=== PATIENT | female | born 1935 | race Caucasian/White ===

== ENCOUNTER 2016-07-07 20:36 | Observation (INO) | payer MEDICARE, BC, OTHER ==
[~2016-07-07] VITALS: Ht 170.2 cm; Wt 82.3 kg
--- NOTE | ~2016-07-07 | ECH ---
Transthoracic Echocardiography Report (TTE) Demographics Patient Name ARIADNE HERNANDEZ Date of Study 07/08/2016 Patient Number [id number] Visit Number [id number] Date of 1935 Room Number 426 Accession Number [id number] Gender Female Age 81 year(s) Referring Bernard Orlando Client Evaluator Melody Negrete Physician Sheldon CUELLAR [facility] [place]ailash Physician Interpreting Sheldon CUELLAR [employer] Apprentice Physician Kailash Supervising Ordering Physician Bernard Orlando MD/P Nurse Stress Knife Setter Grinder Machine Conclusions Contractility Score Summary At rest the following contractility abnormalities were noted: Hypokinesis of the Mid infero-septal, the Apical septal and the Basal infero-septal segments. Contractility of all other segments appeared normal. Summary Technically adequate exam. The estimated left ventricular ejection fraction is 60%. Diastolic assessment reveals Grade I diastolic dysfunction. The right atrium is mildly dilated. Mild tricuspid regurgitation by color Doppler. There is mild pulmonary hypertension. The pulmonary pressure (RVSP) is 35 mmHg. Recommendation The patient will be given the results of this study by the physician who ordered the exam. Procedure Type of Study TTE procedure:Echo Complete SF. Procedure Date Date: 07/08/2016 Start: 02:29 PM Technical Quality: Adequate visualization Indications:Atypical Chest Pain, Hypertension, Coronary artery disease and Left Bundle Branch Block (LBBB). Appropriate Use Criteria: 9 Height: 67 inches Weight: 185 pounds BSA: 1.96 m Rhythm: NSR HR: 84 bpm BP: 163/78 mmHg M-Mode/2D Measurements LV Diastolic Dimension: 4.01 cm LV Systolic Dimension: 3.36 cm LV Septum Diastolic: 0.91 cm LV PW Diastolic: 0.9 cm AO Root Dimension: 3.19 cm Cardiac Output: 4.64 l/min LA Dimension: 3.95 cm Cardiac Index: 2.37 l/min*m RV Diastolic Dimension: 3.53 cm LA volume index: 34 ml/m LVOT: 2.02 cm LVOT VTI: 17.23 cm RV Base: 3.6 cm LV Stroke volume: 55.19 ml RV Mid: 13 cm LV Stroke volume index: 28.16 ml/m TAPSE: 2 cm TDI-S': 14 cm/s Doppler Measurements AV Peak Velocity: 1.3 m/s MV Peak E-Wave: 0.63 m/s AV Peak Gradient: 6.76 mmHg MV Peak A-Wave: 1.14 m/s AV Mean Gradient: 3.88 mmHg MV E/A Ratio: 0.55 LVOT Peak Velocity: 0.97 m/s MV P1/2t: 52.9 msec AV Area (Continuity):2.27 cm MV Deceleration Time: 227.9 msec TR Velocity:2.85 m/s MV Area (PHT): 4.16 cm TR Gradient:32.49 mmHg PV Peak Velocity: 1.14 m/s Estimated RAP:3 mmHg PV Peak Gradient: 5.22 mmHg Estimated RVSP: 35 mmHg Estimated PASP: 35.49 mmHg E' Septal Velocity: 0.07 m/s A' Septal Velocity: 0.1 m/s E' Lateral Velocity: 0.05 m/s A' Lateral Velocity: 0.1 m/s RA Area: 22.14 cm Findings Left Ventricle Normal left ventricle size and function. Diastolic assessment reveals Grade I diastolic dysfunction. Right Ventricle Normal right ventricle structure and function. Left Atrium Normal left atrial size. Right Atrium The right atrium is mildly dilated. Mitral Valve Mild mitral annular calcification. Mild mitral regurgitation by color Doppler. Aortic Valve The aortic valve is mildly sclerotic. Tricuspid Valve Normal tricuspid valve structure and function. Mild tricuspid regurgitation by color Doppler. There is mild pulmonary hypertension. The pulmonary pressure (RVSP) is 35 mmHg. Pulmonic Valve Normal pulmonic valve structure and function. Pericardial Effusion No evidence of pericardial effusion. Miscellaneous Visualized portions of the aortic root and ascending aorta appear normal in size. Pleural Effusion No evidence of pleural effusion. Contractility Score LV regional wall motion:(0-Non visualized 1-Normal 2-Hypokinesis 3-Akinesis 4-Dyskinesis 5-Aneurysm) Signature
--- NOTE | ~2016-07-07 | CST ---
Cardiac Perfusion Imaging Demographics Patient Name MARY Maher Gender Female Patient Number [id number] Race Visit Number [id number] Ethnicity [employer] ID Room Number 426 Accession Number [id number] Height 67 inches Date of 1935 Weight 185 pounds Age 81 year(s) BSA 1.96 m Referring Physician Alex Cherry MD BMI 28.97 kg/m Interpreting Physician Alex Cherry MD Date of study 07/09/2016 [facility] Supervising MD/NICK VIVEROS Technologist Michelle Linder Ordering Physician Alex Cherry MD Stress Misty Moran hematology technician Stress ECG Reading Alex Cherry MD Nurse Ford Physician [facility] Henny Shields The procedure was explained in detail to the patient. Risks, complications and alternative treatments were reviewed. Written consent was obtained. Medications Reviewed with Patient prior to Procedure. Procedure Procedure Type: Nuclear Stress Test:Pharmacological, Lexiscan Procedure Start time: 07/09/2016 08:00 Indications: Chest pain, Hyperlipidemia, Hypertension, Family history of coronary artery disease, COPD and Left Bundle Branch Block (LBBB). Risk Factors The patient risk factors include:treated hypercholesterolemia, treated hypertension, chronic lung disease and dyslipidemia. Conclusions Summary Perfusion Images: The overall quality of the study is good. Left ventricular cavity is noted to be normal on the stress and rest studies. There is no evidence of abnormal lung activity. The right ventricle is not visualized and cannot be assessed. Stress SPECT images demonstrate homogenous tracer distribution throughout the myocardium. Rest SPECT images demonstrate homogenous tracer distribution throughout the myocardium. Gated SPECT imaging reveals normal myocardial thickening and wall motion. The left ventricular ejection fraction was calculated to be 65%. Impression ECG portion of stress test is clinically negative for ischemia by diagnostic criteria. Myocardial perfusion imaging is normal. Overall left ventricular systolic function was normal without regional wall motion abnormalities. There are no previous studies for comparison. Stress Protocols Resting ECG Normal sinus rhythm. LBBB. Resting HR:81 bpm Resting BP:152/72 mmHg Stress Protocol:Pharmacologic Predicted HR: 139 bpm Test duration: 06:00 min Reason for termination:Infusion complete Symptoms Shortness of breath. Symptoms resolved by end of test. Complications Procedure complication: None. Imaging Results Summed scores - Summed stress score: 7 - Summed rest score: 3 - Summed difference score: 4 Stress ejection Ejection fraction:66 % EDV :87 ml ESV :30 ml Stroke volume :57 ml LV mass :114 gr Imaging Protocols Rest Stress Isotope:Tc99m Myoview IV Isotope: Tc99m Myoview IV Isotope dose:10.5 mCi Isotope dose:31.9 mCi Date:07/09/2016 06:30 Date:07/09/2016 08:00 Technique: SPECT Technique: Gated Supine SPECT Supine IV remains in place after procedure. Scan Time:45-60 minutes post Scan Time:45-60 minutes post injection injection Procedure Medications - Regadenoson (Lexiscan) 0.4 mg IV over 10-15 sec. I.V. 0.4 mg. Medications administered per verbal order and read back to physician prior to administration. Medical History Admission Data Admission date: 07/07/2016 Admission Time: 22:25 Hospital Status: Inpatient. Signatures
--- NOTE | 2016-07-08 05:54 | ER ---
ADMIT: 07/07/2016 RM/LOC: ER [facility] MR#: [id number] 2620 [facility] [address] [place] [id number] ARIADNE HERNANDEZ [address] [place] [address] Emergency Room Report SEX: F AGE: 81 : 1935 DATE: 07/07/2016 CHIEF COMPLAINT: Chest pressure. 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 States for the past 12 to 24 hours she has had upper left chest pressure radiating to her neck associated with nausea, shortness of breath, diaphoresis, made worse with activity and improved with rest. The patient had recent epidural steroid injection to cervical spine on June 25, saw Dr. Ryan Alberto last week for chest cold. PAST MEDICAL HISTORY: ILLNESSES: Mitral regurgitation, nonobstructive coronary artery disease with vasospasm, right coronary artery, confirmed heart cath in 2007, hyperlipidemia, hypertension, GERD, COPD, DJD, degenerative disk disease, anemia, UTI, and previous salmonella enterocolitis. OPERATIONS: Coronary catheterization in 2007, epidural steroid injection on June 2016, cholecystectomy, hysterectomy, bilateral rotator cuff repair, and right total hip arthroplasty. ALLERGIES: T3. MEDICATIONS: Please see nurse's MAR. SOCIAL HISTORY: . Nonsmoker. Nondrinker. No illicit drugs. FAMILY HISTORY: Negative per chart review. REVIEW OF SYSTEMS: A 12-point review of systems negative for all other systems, illnesses, or operations except as outlined above. PHYSICAL EXAMINATION: VITAL SIGNS: Temp 98, pulse 95, respirations 18, BP 189/77, and SaO2 of 96% on room air. GENERAL: Mild distress, nontoxic, non-diaphoretic without jaundice or icterus. HEENT: Normocephalic. No evidence of epistaxis, rhinorrhea, or otorrhea. NECK: Supple without lymphadenopathy or thyromegaly. CHEST: Clear. Breath sounds equal and nontender to palpation. HEART: Regular rate and rhythm without murmur, gallop, or edema. ABDOMEN: Soft, nontender, and nondistended without mass or megaly. Bowel sounds hypoactive. EXTREMITIES: No evidence of Homans sign, synovitis, or dermatitis. NEUROLOGIC: EOMI. PERRLA. No evidence of drift, dysarthria, or ataxia. Gait not established. MEDICAL DECISION MAKING: EKG shows sinus tachycardia with left bundle-branch block, unchanged from August 22, 2012. Chest x-ray shows cardiomegaly without ADMIT: 07/07/2016 RM/LOC: [facility] MR#: [id number] [address] [id number] ARIADNE HERNANDEZ [address] [place] [address] Emergency Room Report SEX: F AGE: 81 : 1935 CHF. WBC is 10.5, lactic 2.0, lipase 223, CRP 0.31, sodium 130, glucose 118. Initial CK, MB, and troponin all within normal limits. D-dimer 0.37. BNP 70. The patient was given aspirin, nitroglycerin with near complete relief of pain then placed on IV nitroglycerin with lowering of blood pressure to the one teens and no further pain. Discussed findings with Dr. Jefe Lopez and Dr. So, both agree. Dr. Lopez gave orders to nursing staff. Due to the patient's presentation, findings, and intervention, 60 minutes of critical care is warranted. DIAGNOSES: 1. Unstable angina associated with known right coronary artery spasm. 2. Hypertension. 3. Hyperlipidemia. 4. Degenerative joint disease. RECOMMENDATION: Admit to inpatient PCU for Dr. Wagner. Chris Read MD/ sam JOB #: [id number] CC: Chris Read MD, Attending Physician Everardo Wagner MD, Family Physician Everardo Wagner MD
[2016-07-10] MEDS ORDERED: PROTONIX40 MG PO (14:06)
[2016-07-10] MEDS ORDERED: NASACORT16.9 ML NS (14:06)
[2016-07-10] MEDS ORDERED: ZESTORETIC 20/11 TAB PO (14:06)
[2016-07-10] MEDS ORDERED: MOBIC DPS7.5 MG PO (14:06)
[2016-07-10] MEDS ORDERED: LIPITOR DPS20 MG PO (14:06)
[2016-07-10] MEDS ORDERED: ESTROGEN PATCH TP (14:07)
[2016-07-10] MEDS ORDERED: CALTRATE-600 D600 MG PO (14:07)
[2016-07-10] MEDS ORDERED: ASPIR-LOW81 MG PO (14:07)
[2016-07-10] MEDS ORDERED: KLOR-CON M2020 ME1 PO (14:07)
[2016-07-10] MEDS ORDERED: ZEBETA5 MG PO (14:07)
[2016-07-10] MEDS ORDERED: ADVAIR DIS1 PUFF/DO1 IH (14:08)
[2016-07-10] MEDS ORDERED: ZANTAC DPS150 MG PO (14:08)
[2016-07-10] MEDS ORDERED: PROVENTIL2.5 MG/3 M IH (14:08)
[2016-07-10] MEDS ORDERED: FLEXERIL-DPS10 MG PO (14:08)
[2016-07-10] MEDS ORDERED: ANTIVERT-DPS25 MG PO (14:08)
[2016-07-10] MEDS ORDERED: DUONEB DPS3 ML UG (14:09)
[2016-07-10] MEDS ORDERED: MONTELUKAST SOD10 MG PO (14:09)
[2016-07-10] MEDS ORDERED: ALLEGRA DPS180 MG PO (14:09)
[2016-07-10] MEDS ORDERED: MAALOX DPS30 ML PO (14:09)
[2016-07-10] MEDS ORDERED: CELEXA DPS20 MG PO (14:09)
[2016-07-10] MEDS ORDERED: TYLENOL DPS325 MG PO (14:10)
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
--- NOTE | 2016-07-12 11:56 | CO ---
ADMIT: 07/07/2016 RM/LOC: 426 [facility] MR#: [id number] [address] [address] CELSA HERNANDEZ [address] [place] [address] Consultation SEX: F AGE: 81 : 1935 DATE OF CONSULTATION: 07/08/2016 ATTENDING PHYSICIAN: Everardo Wagner CONSULTING PHYSICIAN: Cecile Johnson MD REASON FOR CONSULT: Chest pain. Radha Bahena RN, scribing for Dr. Dilip Johnson. HISTORY OF PRESENT ILLNESS: Celsa is a pleasant 81-year-old female, I have been asked to see in Cardiology consultation by Dr. Wagner for chest discomfort. She has history of normal cardiac catheterization in 2007, questionable right coronary artery vasospasm at that time. Last echocardiogram was in 2014 showing EF of 60% to 65% with mild mitral regurgitation. She has history of left bundle branch block dating back to 2012. She also has history of hypertension and hyperlipidemia. Celsa presented to [facility] with complaints of chest heaviness. She states that her symptoms began yesterday afternoon in her left chest, did not radiate anywhere and waxed and waned during the day. She states that with rest and with exertion, she was having discomfort but did feel weaker with her regular activities. Since admission, she does state she still had chest pressure off and on, but not as intense. She had some nausea significant yesterday as well. Cardiac enzymes have been negative x3. Vital signs have been stable. EKG does not show any significant ST-T changes. PAST MEDICAL HISTORY: Left bundle branch block, hypertension, hyperlipidemia, COPD, gastroesophageal reflux disease, gallbladder disease, urinary tract infections, degenerative joint disease, degenerative disk disease with osteoarthritis and anemia. PAST SURGICAL HISTORY: Includes epidural injection on June 25 of this year, cholecystectomy, hysterectomy, bilateral rotator cuff repair, and right total hip arthroplasty. ALLERGIES: TYLENOL NO. 3. MEDICATIONS: Current medications include: 1. Aspirin 81 daily. 2. Caltrate 600 b.i.d. 3. Celexa 20 daily. 4. Flexeril 10 at bedtime. 5. Potassium chloride 20 mEq b.i.d. 6. Lipitor 20 at bedtime. 7. Mobic 7.5 daily. 8. Protonix 40 daily. 9. Singulair 10 at bedtime. 10.Zebeta 5 b.i.d. ADMIT: 07/07/2016 RM/LOC: 426 [facility] MR#: [id number] [address] [address] MARYCELSA [address] [address] Consultation SEX: F AGE: 81 : 1935 11.Zestoretic 20/12.5 daily. 12.Dulera b.i.d. 13.Flonase 2 daily. 14.Lovenox 40 mg subcu daily. FAMILY HISTORY: Noncontributory. SOCIAL HISTORY: Celsa is . She lives at home with her . She is retired. She denies any special diet, significant caffeine, alcohol, or drug use. She denies any tobacco use. REVIEW OF SYSTEMS: GENERAL: Denies any increased fatigue, recent fever, chills, sweats, or weight changes. EYES: Denies double vision, blurred vision, cataracts, or glaucoma. THROAT, MOUTH AND EARS: Denies hearing loss or problems with nose, mouth or throat. RESPIRATORY: History of COPD. Denies any hemoptysis or sleep apnea. GASTROINTESTINAL: History of gastroesophageal reflux disease and gallbladder disease status post cholecystectomy. Denies any hiatal hernia, GI bleeding, or trouble swallowing. GENITOURINARY: History of urinary tract infections in the past, none currently. Denies any hematuria. MUSCULOSKELETAL: History of muscle and joint pain with degenerative disk disease, degenerative joint disease, particularly in her knees and also has history of right hip arthroplasty. She denies any gout. ENDOCRINE: Denies diabetes or thyroid disease. HEMATOLOGY: Chronic anemia. Denies cancer. NEUROLOGIC: Denies chronic headaches, dizziness, syncope, stroke, seizures or numbness or tingling. PSYCHIATRIC: Denies history of mental illness or feelings of depression. PHYSICAL EXAMINATION: VITAL SIGNS: Blood pressure 153/78, heart rate 95, respirations 20, temperature 98.5, and oxygenation 92%. SKIN: [place], warm and dry. EYES: Sclerae clear. No xanthelasmas. ENT: Oral mucosa is pink and moist. No jugular venous distention or carotid bruits. CHEST: Respirations are even and unlabored. Lungs are clear to auscultation. HEART: Regular rate and rhythm. Normal S1, S2. No murmurs, rubs or gallops. ABDOMEN: Soft and nontender. MUSCULOSKELETAL: Gait is normal. EXTREMITIES: Peripheral pulses palpable. No clubbing, cyanosis or edema. PSYCHIATRIC: Alert and oriented. Mood and affect are appropriate. DIAGNOSTIC DATA: Sodium 131, potassium 4.3, BUN 10, creatinine 0.8, glucose 116, and magnesium 1.8. ProBNP 70. CRP 0.31. D-dimer 0.37. INR 0.93. White blood cell count 9.8, hemoglobin 13.8, hematocrit 40.5, and platelets 275. CK 51, MB less than 0.5, and troponin less than 0.015 on third set. All 3 sets ADMIT: 07/07/2016 RM/LOC: 426 [facility] MR#: [id number] [address] [address] CELSA HERNANDEZ [address] [place] [address] Consultation SEX: F AGE: 81 : 1935 are negative. ASSESSMENT/PLAN: 1. Chest pain. 2. Mitral regurgitation. 3. Hypertension. 4. Left bundle branch block. Celsa's chest pain seems atypical. Her EKG and enzymes have been negative. I see no changes from prior EKG. I would like to check echocardiogram given her history of mitral regurgitation as well as current symptoms of chest discomfort to make sure there are no wall motion abnormalities, change in ejection fraction, or valvular abnormalities. If that is normal, we will proceed with stress test, Lexiscan tomorrow morning. She is unable to walk on the treadmill because of arthritis, also she has a left bundle branch block at baseline. Final recommendations will be pending testing results. Thank you for the consultation. "I have read and agree with the documentation that has been completed regarding this visit. By signing this record, I attest that the documentation was completed in my physical presence and is an accurate record of the encounter." Radha Bhaena RN / CPamela Johnson MD / sam JOB #: [id number] CC: Everardo Wagner, Attending Physician Everardo Wagner, Family Physician
--- NOTE | 2016-07-13 15:45 | HP ---
ADMIT: 07/07/2016 RM/LOC: [facility] MR#: [id number] [facility] [address] [place], [place] [id number] ARIADNE HERNANDEZ [address] [place] [address] History and Physical SEX: F AGE: 81 : 1935 DATE OF SERVICE: AGE: 81. CHIEF COMPLAINT: Chest pain. CLINICAL HISTORY: The patient is an 81-year-old, white female, admitted to [facility] on Friday evening, after presenting to the emergency room complaining of chest discomfort or pressure in her upper chest. Patient presented to the emergency room as noted, on the evening of 07/07/2016, complaining of chest discomfort. She had been having some chest pain off and on throughout the weekend in her left upper chest and at the base of her neck. She also was having some nausea and a feeling of shortness of breath with this discomfort. She had an episode that seemed a little more intense on the evening of 07/07/2016, and for that reason, she had her contact the ambulance and she was brought to the ER by the [facility]. Because of her chest discomfort, she is evaluated in the ER by Dr. Her where her cardiac enzymes were noted to be normal including a troponin 1 of less than 0.015. She also was noted to have an EKG that showed sinus tachycardia with left bundle branch block, unchanged from prior EKGs. She had a chest x-ray that showed cardiomegaly without CHF and no acute infiltrates. Her D-dimer was noted to be normal at 0.37, proBNP was 70. The patient was given baby aspirin as well as some sublingual nitroglycerin while in the emergency room. She was then placed on IV nitroglycerin which alleviated her chest pain. It was felt that there was a strong possibility that this could be cardiac in nature although notes the patient has been having ongoing neck pain and severe difficulty with her cervical spine due to her disk disease. She has been having neck pain and radicular right arm pain from her cervical disk disease. She notes that her neck pain has also been at times radiated down into her chest. She was unsure if this pain was all related to her neck or possibly cardiac in nature, which is why she presented to the ER. Following evaluation in the ER, it was felt best to admit to rule out possible cardiac etiology and proceed with further cardiac workup. PAST MEDICAL HISTORY: Recent hospitalizations: The patient was last hospitalized here at [facility] in July of 2012. At that time, she was 1 month post right total hip, but had developed nausea and vomiting and diarrhea and was found to have a salmonella gastroenteritis. She had been hospitalized on 07/27/2012, for right total hip. She has had no other recent hospitalizations. PREVIOUS SURGICAL PROCEDURES: Include a left total hip arthroplasty done in March of 2012. She has also had previous left rotator cuff repair and she has also had a right rotator cuff repair in October of 2010, right knee scope in July of 2011. She has had a previous hysterectomy and cholecystectomy. She has also had previous EGDs and colonoscopy. She has also had previous surgical repair of a fractured right patella. She has chronic arthritic pain in her right knee. Other surgeries include previous cataract surgery as well as breast biopsy for benign breast lesions. She has ADMIT: 07/07/2016 RM/LOC: [facility] MR#: [id number] [address] [id number] ARIADNE HERNANDEZ [address] [place] [address] History and Physical SEX: F AGE: 81 : 1935 had no other recent hospitalizations or surgical procedures. CURRENT MEDICATIONS: Include: 1. Nasacort AQ 2 sprays each nares daily. 2. Prinzide 20/12.5 one daily. 3. Protonix 40 mg daily. 4. Lipitor 20 mg daily. 5. Mobic 7.5 mg daily, which she has not been taking recently. 6. Zebeta 5 mg twice daily. 7. K-Dur 20 mEq b.i.d. 8. Calcium 600 mg twice daily. 9. Baby aspirin 81 mg daily. 10.Albuterol metered-dose inhaler p.r.n. shortness of breath. 11.Advair 250/50 one puff twice daily. 12.Flexeril 10 mg at bedtime for back pain. 13.Antivert 25 mg 1 every 6 hours p.r.n. dizziness. 14.Zantac 150 mg 1 at bedtime p.r.n. indigestion. 15.Jessy 180 mg 1 daily p.r.n. allergy congestion. 16.Singulair 10 mg at bedtime. 17.DuoNeb via twin jet nebulizer q.i.d. p.r.n. shortness of breath. 18.Celexa 20 mg daily. ALLERGIES: SHE IS ALLERGIC TO CODEINE AND ACETAMINOPHEN. SHE NOTES THAT TYLENOL NO. 3 CAUSED HER TO HAVE SEVERE CONSTIPATION AND URINARY RETENTION. SOCIAL HISTORY: The patient is . She is retired. She lives with her in their family home in [place], [place]. She is a lifelong nonsmoker. No history of alcohol use. No history of illicit drugs. FAMILY HISTORY: She notes her father had colon cancer. Grandmother also had colon cancer. She has a sister, who had a malignant brain tumor. Her mother of acute myocardial infarction as did one of her brothers. There is a family history of hypertension and hyperlipidemia. One of her sisters also had breast cancer and one of her daughters has also had breast cancer. Remainder of her family history is negative. REVIEW OF SYSTEMS: CONSTITUTIONAL: No fever, no chills. No recent change in weight. No night sweats. Appetite is normal. HEENT: Does have some chronic nasal and sinus congestion due to allergies, but no other new eye, ear, nose, or throat complaints. PULMONARY: The patient does have history of COPD. She did have recent upper respiratory infection with some increased chest congestion. She notes minimal sputum production at this time. No pleuritic chest pain. No hemoptysis. CARDIAC: The patient does have history of valvular heart disease, history of tricuspid regurgitation, and mild mitral regurgitation. No prior history of myocardial infarction or angina. No palpitations. No orthopnea. No PND. No syncope. GASTROINTESTINAL: History of chronic GERD. History of esophageal reflux, ADMIT: 07/07/2016 RM/LOC: [facility] MR#: [id number] [facility] [address] [place], [place] [id number] ARIADNE HERNANDEZ [address] [place] [id number] History and Physical SEX: F AGE: 81 : 1935 symptoms well controlled. Has had previous cholecystectomy. No recent blood in the stools. No change in bowel habitus. GENITOURINARY: No voiding symptoms at this time. No flank pain or dysuria. MUSCULOSKELETAL: Diffuse arthritic complaints. Significant arthritis in her knees. She has had bilateral hip surgery, bilateral total hip arthroplasty. She has had no recent falls or injuries. Does have chronic low back pain, history of lumbar spinal stenosis. Has had previous lumbar epidural steroid injections with good relief. Has chronic neck pain with recent marked worsening of her neck discomfort. NEUROLOGIC: No history of strokes, seizures, or TIAs. No focal symptoms. No lightheadedness, dizziness, or syncope. She has been having neck pain with radicular right arm pain. ENDOCRINE: No history of diabetes or thyroid issues. HEMATOLOGIC: No previous history of clotting disorder, blood clots, or significant history of anemia. PHYSICAL EXAMINATION: VITAL SIGNS: Temp is 97.3, pulse 78, respirations 12, blood pressure 120/51, O2 saturation is 93%, current weight is 185 pounds. GENERAL: The patient is an 81-year-old female, who appears her stated age. She is in no acute distress. She is oriented x3. HEENT: Reveals her ears to be clear. Nose and throat are noninflamed. Oropharynx normal. Pupils equal and reactive. Sclerae nonicteric. Conjunctivae noninflamed. NECK: Noted to have limited mobility due to her cervical muscle spasm. She has a lot of tightness in her paraspinous muscles. Tightness in her neck, shoulders, and upper back. No neck masses. No cervical adenopathy. Thyroid not enlarged. LUNGS: Today are noted to be clear. Little diminished in the bases. HEART: Has a regular rhythm. She has a grade 1/6 systolic murmur heard along the left sternal border. No evidence of failure. No arrhythmias noted. ABDOMEN: Soft, nontender. No masses. No organomegaly. No hernias. Bowel sounds are normoactive. BREASTS: Exam not performed at this time. PELVIC: Not performed at this time. EXTREMITIES: Have no peripheral edema. No clubbing or cyanosis. No calf tenderness. She has scars over both hips from previous total hip arthroplasty. She has no evidence of thrombophlebitis. Negative Homans' sign. She moves all extremities well. NEUROLOGICAL: I cannot appreciate any focal deficit. Her balance is fair, gait is steady. She has no focal deficits on neurologic exam. MENTAL STATUS EXAMINATION: She is oriented x3. Her affect is appropriate. No significant depressive symptoms. Cognitively well-preserved. LABORATORY DATA: Her pre-admission laboratory work; on CBC white count was 10,500, hemoglobin 13.3, hematocrit 39. Electrolytes were normal. Sodium 130, potassium 4.2, BUN was 13, creatinine was 0.9. CK-MB was less than 0.5, CPK was 33, troponin 1 was low at less than 0.015. Her chest x-ray was noted ADMIT: 07/07/2016 RM/LOC: [facility] MR#: [id number] [address] [id number] ARIADNE HERNANDEZ [address] [place] [address] History and Physical SEX: F AGE: 81 : 1935 to have cardiomegaly without CHF. No acute infiltrates. EKG showed sinus tachycardia with left bundle branch block. No change from old EKGs. ASSESSMENT AT THE TIME OF ADMISSION: 1. Atypical chest pain, rule out cardiac etiology. 2. Valvular heart disease with mild mitral regurgitation and mild tricuspid regurgitation. 3. Chronic obstructive pulmonary disease. 4. Hypertension. 5. Hyperlipidemia. 6. Generalized osteoarthritis. 7. Chronic gastroesophageal reflux disease. 8. Cervicalgia. 9. Advanced degenerative disk disease, cervical spine. 10.Chronic back pain. 11.Advanced degenerative disk disease, lumbosacral spine. PLAN: The patient has been admitted for cardiac monitoring. She is admitted to telemetry with plans to check serial EKGs and enzymes. Cardiology consult has been requested. I feel her chest pain is atypical, most likely musculoskeletal. While hospitalized, we will get MRI of her cervical spine as well to evaluate her worsening neck pain and increasing signs of cervical myelopathy. We will get MRI of the cervical spine. We will get echocardiogram. We will get Cardiology consult and see if they feel whether she needs another heart catheterization and/or nuclear medicine stress test. We will await recommendations from Cardiology. Everardo Wagner MD/ sam JOB #: [id number] CC: Everardo Wagner MD, Attending Physician Everardo Wagner MD, Family Physician
== END 2016-07-09 19:19 | disposition home or self-care (01) ==
LOC: ER 20:36 → 4PCU 22:25
PROVIDERS: ADMIT Family Medicine
DX: R07.89 Other chest pain (principal); I10 Essential (primary) hypertension; E78.5 Hyperlipidemia, unspecified; J44.9 Chronic obstructive pulmonary disease, unspecified; I08.1 Rheumatic disorders of both mitral and tricuspid valves; I44.7 Left bundle-branch block, unspecified; M19.90 Unspecified osteoarthritis, unspecified site; K21.9 Gastro-esophageal reflux disease without esophagitis; M50.30 Other cervical disc degeneration, unspecified cervical region; G89.29 Other chronic pain; M51.37 Other intervertebral disc degeneration, lumbosacral region; Z79.899 Other long term (current) drug therapy; Z79.82 Long term (current) use of aspirin; Z90.49 Acquired absence of other specified parts of digestive tract; Z90.710 Acquired absence of both cervix and uterus; Z96.642 Presence of left artificial hip joint